=== PATIENT | male | born 1955 | race Caucasian/White ===

== ENCOUNTER 2022-12-03 10:13 | Outpatient (CLI) | payer MEDICARE, SELFPAY | END 2022-12-03 10:14 | disposition home or self-care (01) | LOC: ANHAUDIO 10:13 | PROVIDERS: PCP Nurse Practitioner Family; Visit Provider Physician Assistant Medical | DX: H90.3 Sensorineural hearing loss, bilateral (principal); R79.89 Other specified abnormal findings of blood chemistry; E29.1 Testicular hypofunction | CPT/HCPCS: 92557; 92567 ==

== ENCOUNTER 2023-12-05 11:36 | Outpatient (CLI) | payer MEDICARE, SELFPAY ==
--- NOTE | ~2023-12-05 | CT_ITS ---
EXAMINATION: CTA chest PE protocol DATE: 12/05/2023 12:00 INDICATION: Fatigue. Personal history of pulmonary embolism. TECHNIQUE: Computed tomography angiography (CTA) of the chest was performed with 100 mL Omnipaque-350 intravenous contrast timed to evaluate the pulmonary arteries. Coronal maximum intensity projection 3D-reconstructions were created by the technologist. Automated exposure control and iterative reconst ruction technique were employed. Exam dose: 613.54 mGy-cm total exam DLP. COMPARISON: None. FINDINGS: There is diagnostic contrast enhancement of the pulmonary arteries and no evidence of pulmo nary embolism. Cardiomegaly. No pericardial effusion. No pleural effusion. No hilar or mediastinal mass lesion or lymphadenopathy. The patchy groundglass density of the lower lobes suggesting small airways disease or atelectasis. No pulmonary consolidation or suspicious pulmonary mass lesion is detected. Small sliding hiatal hernia. Normal morphology of the adrenal glands. Postsurgical changes apparently from right nephrectomy. Scattered probable hepatic cysts. No suspicious osteolytic or osteoblastic lesions. Degenerative spurring of the thoracic spine. IMPRESSION: No evidence of pulmonary embolism Cardiomegaly Bilateral lower lobe atelectasis/small airways disease Status post right nephrectomy Reviewed, dictated and finalized at [facility]. Reviewed, dictated and finalized at [facility].
[2023-12-05 11:51] LABS: Estimated Glomerular Filt Rate 60
== END 2023-12-05 11:37 ==
LOC: MICIMG 11:37
PROVIDERS: PCP Physician Assistant Medical; Visit Provider Physician Assistant Medical
DX: R53.83 Other fatigue (principal); I51.7 Cardiomegaly; R91.8 Other nonspecific abnormal finding of lung field
CPT/HCPCS: 36415; 71275; Q9967